=== PATIENT | male | born 1955 | race Two or more races ===

== ENCOUNTER → 2021-05-21 | Outpatient (CLI) | payer MEDICARE ==
--- NOTE | 2021-05-21 16:23 | KCIC ---
EXAM: RENAL ULTRASOUND CLINICAL HISTORY: Reason: DECREASED RENAL FUNCTION / Spl. Instructions: / History: COMPARISON: None available. TECHNIQUE: Ultrasound examination of the bilateral kidneys and urinary bladder was performed. FINDINGS: The right kidney measures 11.2 x 4.7 x 5.3 cm. The left kidney measures 11.1 x 6.4 x 5.3 cm. Normal c ortical thickness and echogenicity. No hydronephrosis. There is a 1.5 cm simple left renal cyst. 7 mm echogenic focus in the right renal cortex, possibly a calculus. The bladder is unremarkable. Bilater al ureteral jets are seen. IMPRESSION: 1. No hydronephrosis. 2. 1.5 cm simple cyst in the left kidney. 3. Possible right nephrolithiasis. Electronically signed by: Lalitha Muller MD (05/21/2021 4:20 PM) [id number]
== END ==
LOC: KCIC US 14:03
PROVIDERS: ATTEND Family Medicine
DX: N28.1 Cyst of kidney, acquired (principal); N28.9 Disorder of kidney and ureter, unspecified
CPT/HCPCS: 76770